=== PATIENT | female | born 1930 | race Caucasian/White ===

== ENCOUNTER → 2016-05-14 | Outpatient (CLI) | payer BC ==
[~2016-05-14] MED LIST: CALC1TAB9 PO; CEPH500C PO; CRS/10 PO; FLUT0.15 NAE; LEVO25TA5 PO; VALS40TA2 PO
--- NOTE | 2016-05-14 16:18 | MAMMOGRAPHY REPORT ---
BILATERAL DIGITAL SCREENING MAMMOGRAM WITH CAD: 05/14/2016 CLINICAL HISTORY: Routine screening. Patient has no complaints. TECHNIQUE: Bilateral CC and MLO views were obtained. Current study was also evaluated with a Comput er Aided Detection (CAD) system. COMPARISON: Comparison is made to exams dated: 05/10/2015 mammogram, 05/06/2014 mammogram, 03/15/2013 mammogram, 03/02/2012 mammogram, 02/27/2011 mammogram, and 02/26/2010 mammogram - [facility]. BREAST COMPOSITION: The tissue of both breasts is heterogeneously dense, which may obscure small ma sses. FINDINGS: There are mild vascular calcifications in the breasts. No suspicious mass, architectural distortion or cluster of microcalcifications is seen. IMPRESSION: ACR BI-RADS CATEGORY 1: NEGATIVE There is no mammographic evidence of malignancy. A 1 year screening mammogram is recommended. The p atient will receive written notification of the results. Approximately 10% of breast cancers are not detected with mammography. A negative mammographic repor t should not delay biopsy if a clinically suggestive mass is present. Ayse Mehta M.D. ay/:05/14/2016 14:56:02 Operational Communication Chief: Kathi GÓMEZ(Juan)(Dominick), [facility] letter sent: Normal 1/2 BI-RADS Code: ACR BI-RADS Category 1: Negative
== END | disposition home or self-care (01) ==
LOC: C.MAMM 11:14
PROVIDERS: ATTEND Internal Medicine
DX: Z12.31 Encounter for screening mammogram for malignant neoplasm of breast (principal)

== ENCOUNTER 2016-07-22 14:09 | Emergency (ER) | payer BC ==
[~2016-07-22] VITALS: Ht 165.1 cm; Wt 65.0 kg
[2016-07-22 14:15] VITALS: TEMP 36.4; O2SAT 93; Ht 165.1 cm; Wt 65.0 kg
[2016-07-22] MEDS ORDERED: XYLOCAINE 1%/SOD BICARB 20 ML VIAL INFIL ONE (14:41)
--- NOTE | 2016-07-22 15:05 | EMERGENCY ROOM VISIT NOTE ---
ED Visit Note First contact with patient: 14:19 This Patient was discussed with the physician Gum Rolling Machine Tender, Holly Lawton PA-C. The pertinent historical and physical exam findings were confirmed. I agree with the studies ordered and with the interpretations of these studies. I agree with the disposition and care plan.
[2016-07-22] MEDS ORDERED: CRS/10 PO (15:32)
[2016-07-22] MEDS ORDERED: LEVO25TA5 PO (15:32)
[2016-07-22] MEDS ORDERED: FLUT0.15 NAE (15:32)
[2016-07-22] MEDS ORDERED: CALC1TAB9 PO (15:32)
[2016-07-22] MEDS ORDERED: VALS40TA2 PO (15:32)
[2016-07-22 15:38] VITALS: BP 162/75; PULSE 63
[2016-07-22] MEDS ORDERED: CEPH500C PO (15:46)
--- NOTE | 2016-07-22 15:46 | EMERGENCY ROOM VISIT NOTE ---
ED Visit Note First contact with patient: 14:19 CHIEF COMPLAINT: Right leg laceration HISTORY OF PRESENT ILLNESS: This 86-year-old female patient presents to the emergency department ambulatory after cutting the right anterior lower extremity. The bleeding has stopped. Denies weakness or numbness of the foot or toes. The patient denies any pain. The patient denies any other injuries. The patient's Tetanus shot is up to date. The patient states she was outside in her garden and walked into a bolanos that had been pruned in the fall. She was wearing thick high socks and pants. There was no puncture or open area in the clothing. REVIEW OF SYSTEMS: A 6 system review of systems was completed with positives and pertinent negatives listed in the HPI. ALLERGIES: No known allergies MEDICATIONS: See nursing notes PMH: Hyperlipidemia SOCIAL HISTORY: The patient resides at [facility] PHYSICAL EXAM: Vital Signs: Reviewed Nurse's notes, vital signs stable. GENERAL : This is an 86-year-old female, in no acute distress, well-developed, well- nourished. SKIN: There is a complex, irregular, 5 cm long laceration on the anterior aspect of the right lower extremity. The edges gape apart with traction. There is no foreign material in the wound and it looks clean. There is minimal bleeding. No deep structures such as tendons, bones, or nerves are seen in the base of the wound. Normal strength and movement of the foot and toes. Capillary refill less than 2 seconds. Normal sensation to light and sharp touch. EMERGENCY DEPARTMENT COURSE: I examined the patient. Using sterile technique the wound was cleaned with Betadine. The area was sterilely draped. 6 ml of 1% buffered lidocaine was used to anesthetize the laceration on the leg. Once the patient was numb, the wound was copiously irrigated under pressure with sterile saline. The wound was explored and was as described above. The laceration was repaired using 4 subcutaneous simple interrupted 5-0 vicryl sutures and 16 simple interrupted 5-0 nylon sutures with the wound edges being well approximated. The patient tolerated the procedure well. The bleeding stopped. The area was cleaned with sterile saline and dressed with bacitracin ointment and bandage. The patient was discharged home in good condition. The patient was also seen and examined by who agrees with the assessment and treatment plan. Current/Historical Medications Scheduled Calcium Citrate-Vitamin D (Citracal + D3 Maximum), 1 TAB PO DAILY Cephalexin Monohydrate (Keflex), 500 MG PO TID Fluticasone Propionate (Nasal) (Flonase Allergy Relief), 2 SPRAYS CYRIL DAILY Levothyroxine Sodium (Levothyroxine Sodium), 1 TAB PO DAILY Rosuvastatin Calcium (Crestor), 10 MG PO DAILY Valsartan (Diovan), 40 MG PO DAILY Allergies Coded Allergies: No Known Allergies (Verified , 07/22/16) Vital Signs Date Time Temp Pulse Resp B/P Pulse Ox O2 Delivery O2 Flow Rate FiO2 07/22/16 15:38 63 162/75 07/22/16 14:15 36.4 67 18 173/75 93 Room Air Departure Information Impression Primary Impression: Laceration Dispostion Home / Self-Care Condition GOOD Prescriptions Cephalexin Monohydrate (Keflex) 500 Mg Cap 500 MG PO TID for 5 Days, #15 CAP Prov: Sarah Lawton PA-C 07/22/16 Referrals Sarah Miller (PCP) Patient Instructions ED Laceration All, [facility] Additional Instructions Keep wound clean and dry. Do not allow any crusting or dried blood to accumulate on sutures. If this occurs, use a 1:1 solution of hydrogen peroxide/ water on a Q-tip to clean the wound. Use an antibiotic ointment for 3-4 days, then let wound dry. Suture removal in 10-12 days. Return sooner for any signs of infection (increasing redness, swelling, drainage). Ice and elevate for swelling and pain. Keep covered when in sun until sutures removed then SPF 50 or higher for one year. Vitamin E oil if desired two weeks after suture removal for reduction of scar. Wear the Freddy wrap when up and about over the next 2-3 days Keflex every 8 hours for 5 days to help prevent infection
== END 2016-07-22 15:49 | disposition home or self-care (01) ==
LOC: C.EDB 14:11 → C.EDD 15:49
DX: S81.811A Laceration without foreign body, right lower leg, initial encounter (principal); W19.XXXA Unspecified fall, initial encounter; Y92.89 Other specified places as the place of occurrence of the external cause; E78.5 Hyperlipidemia, unspecified; Z79.899 Other long term (current) drug therapy

== ENCOUNTER → 2016-10-04 | Outpatient (CLI) | payer BC ==
[~2016-10-04] MED LIST changes: -CEPH500C PO
--- NOTE | 2016-10-04 10:08 | DIAGNOSTIC IMAGING REPORT ---
L-SPINE MIN 4 VIEWS ROUTINE CLINICAL HISTORY: Low back pain radiating into right lower extremity. COMPARISON: None FINDINGS: There is slight anterolisthesis of L5 on S1. There is concavity with mild loss of height of the superior endplate of L1 which suggests an old compression fracture. No acute fracture is identified on this exam. There is moderate disc space narrowing at L5-S1. There is moderate multilevel facet arthrosis. IMPRESSION: 1. Mild compression deformity of the superior endplate of L1 which suggests an old compression fracture. 2. Moderate disc space narrowing at L5-S1. 3. Moderate multilevel facet arthrosis. Electronically signed by: Valeriano June M.D. 10/04/2016 10:07 AM Dictated Date/Time: 10/04/2016 10:04 AM
== END | disposition home or self-care (01) ==
LOC: C.RAD 09:47
PROVIDERS: ATTEND Internal Medicine
DX: M47.27 Other spondylosis with radiculopathy, lumbosacral region (principal)

== ENCOUNTER → 2016-11-18 | Outpatient (CLI) | payer BC ==
[2016-11-18 10:37] LABS: BLOOD UREA NITROGEN 14 mg/dl (7-18); BUN/CREATININE RATIO 15.4 (10-20); CALCIUM 9.2 mg/dl (8.5-10.1); CARBON DIOXIDE 32 mmol/L (21-32); CHLORIDE 108 mmol/L (98-107); CREATININE 0.94 mg/dl (0.60-1.20); GLUCOSE 87 mg/dl (70-99); POTASSIUM 4.1 mmol/L (3.5-5.1); SODIUM 144 mmol/L (136-145)
== END | disposition home or self-care (01) ==
LOC: C.LABFOXMH 09:58
PROVIDERS: ATTEND Internal Medicine
DX: I10 Essential (primary) hypertension (principal)

== ENCOUNTER → 2017-03-31 | Outpatient (CLI) | payer BC ==
[2017-03-31 09:30] LABS: HEMATOCRIT 37.9 % (37-47); MEAN CELL VOLUME 89.8 fL (80-100); MEAN CORPUSCULAR HEMOGLOBIN 29.9 pg (25-34); MEAN CORPUSCULAR HGB CONC 33.2 g/dl (32-36); MEAN PLATELET VOLUME 10.8 fL (7.4-10.4); PLATELET COUNT 158 K/uL (130-400); RED BLOOD COUNT 4.22 M/uL (4.2-5.4); WHITE BLOOD COUNT 4.55 K/uL (4.8-10.8)
[2017-03-31 09:39] LABS: ALT/SGPT 38 U/L (12-78); AST/SGOT 28 U/L (15-37); BLOOD UREA NITROGEN 12 mg/dl (7-18); BUN/CREATININE RATIO 13.7 (10-20); CALCIUM 8.4 mg/dl (8.5-10.1); CARBON DIOXIDE 30 mmol/L (21-32); CHLORIDE 107 mmol/L (98-107); CREATININE 0.85 mg/dl (0.60-1.20); GLUCOSE 87 mg/dl (70-99); POTASSIUM 4.3 mmol/L (3.5-5.1); SODIUM 141 mmol/L (136-145)
[2017-03-31 09:52] LABS: ALB/GLOB RATIO 0.9 (0.9-2); ALKALINE PHOSPHATASE 78 U/L (45-117); CHOLESTEROL 118 mg/dl (0-200); CHOLESTEROL/HDL RATIO 2.1; HDL CHOLESTEROL 57 mg/dl; LDL CHOLESTEROL CALCULATED 45 mg/dl; TRIGLYCERIDES 79 mg/dl (0-150); VERY LOW DENSITY LIPOPROT CALC 16 mg/dl
== END | disposition home or self-care (01) ==
LOC: C.LABFOXMH 08:51
PROVIDERS: ATTEND Internal Medicine Hospice and Palliative Medicine
DX: E03.9 Hypothyroidism, unspecified (principal); E78.00 Pure hypercholesterolemia, unspecified; I10 Essential (primary) hypertension

== ENCOUNTER → 2017-05-21 | Outpatient (CLI) | payer BC ==
--- NOTE | 2017-05-22 14:35 | MAMMOGRAPHY REPORT ---
BILATERAL DIGITAL SCREENING MAMMOGRAM TOMOSYNTHESIS WITH CAD: 05/21/2017 CLINICAL HISTORY: Routine screening. Patient has no complaints. TECHNIQUE: Breast tomosynthesis in addition to standard 2D mammography was performed. Current study was also evaluated with a Computer Aided Detection (CAD) system. COMPARISON: Comparison is made to exams dated: 05/14/2016 mammogram, 05/10/2015 mammogram, 05/06/2014 m ammogram, 03/15/2013 mammogram, 03/02/2012 mammogram, and 02/27/2011 mammogram - [facility]. BREAST COMPOSITION: The tissue of both breasts is heterogeneously dense, which may obscure small mas ses. FINDINGS: No suspicious masses, calcifications, or areas of architectural distortion are noted in ei ther breast. There has been no significant interval change compared to prior exams. IMPRESSION: ACR BI-RADS CATEGORY 1: NEGATIVE There is no mammographic evidence of malignancy. A 1 year screening mammogram is recommended. The pa tient will receive written notification of the results. Approximately 10% of breast cancers are not detected with mammography. A negative mammographic report should not delay biopsy if a clinically suggestive mass is present. Malorie Maya M.D. ah/:05/22/2017 07:19:02 Lead Database Administrator: Kate GÓMEZ(R)(M), [facility] letter sent: Normal 1/2 BI-RADS Code: ACR BI-RADS Category 1: Negative
== END | disposition home or self-care (01) ==
LOC: C.MAMM 17:08
PROVIDERS: ATTEND Internal Medicine
DX: Z12.31 Encounter for screening mammogram for malignant neoplasm of breast (principal)